=== PATIENT | female | born 2005 | race Caucasian/White ===

== ENCOUNTER 2025-08-28 07:02 | Outpatient (REF) | payer BC, SELFPAY ==
--- NOTE | ~2025-08-28 | US_ITS ---
EXAMINATION: US PELVIS TRANSABDOMINAL AND TRANSVAGINAL HISTORY: IRREGULAR BLEEDING COMPARISON: There are no prior studies available for comparison. TECHNIQUE: Transabdominal and endovaginal real-time 2D rueda-scale ultrasound was performed. FINDINGS: Uterus: The uterus is normal in size, measuring 7.4 x 3.1 x 3.9 cm. Myometrium has a normal echotexture. No fibroids are identified. Endometrium: The endometrial stripe measures 2 mm in thickness. Right ovary: The right ovary measures 2.1 x 1.2 x 2.3 cm. The right ovary is normal in size and echotexture. Left ovary: The left ovary measures 2.0 x 1.5 x 1.1 cm. The left ovary is normal in size and echotexture. Pelvic fluid: none. US/US pelvic and transvaginal IMPRESSION: Unremarkable pelvic ultrasound. Electronically signed by: Alec Pedroza MD 08/28/2025 12:50 PM EDT
--- OUTSIDE RECORDS SUMMARY | 2025-08-28 07:06 | XMS_ITS | Clinical Summary ---
Author Organization [facility] [employer] [facility] linic Address [address] [place] [address] Care Team Providers Care Netezza Architect Name Role Phone Pcp, No Primary Care Provider [phone] Social History Tobacco Use Types Packs/Day Years Used Date Smoking Tobacco: Never Assessed Comments Unknown Sex and Gender Information Value Date Recorded Sex Assigned at Not on file Legal Sex Female 4:24 PM EDT Gender Identity Not on file Sexual Orientation Not on file Plan of Treatment Health Maintenance Due Date Last Done Comments Depression: Screening Annual ly using PHQ-2/9 in Adults 18 yrs or above (or HM Modifier)([facility]) 2022 Hepatitis C Virus Infection in Adolescents and Adults: Screening (or Modifier) ([facility]) 2022 SDOH Screening Reminder: Syeda srivastava for all adults ([facility]) 2022 Tobacco Smoking Cessation: i n Adults excluding Women: Behavioral and Pharmacotherapy Interventions ([facility]) 2022 DTaP/Tdap/Td Vaccines ([facility]) (1 - Tdap) 2023 Flu Vaccination: Yearly for ages 18mos through 64 years (or Modifier)([facility]) 06/15/2025 COVID-19 Vaccine Screening: Initial Series and Booster Status ([facility]) ( - 2023- season) 2025 Zoster/Shingles Vaccine Seri es Screening: Adults aged 18+ yrs (or HM Modifiers)([facility]) (1 of 2) 2054 Pneumococcal Vaccination Scr eening: Pts 0-19 & 19-49 yrs of age ([facility]) Aged Out No longer eligible based on patient's age to complete this topic Medical Devices Not on file Care Teams Netezza Architect Relationship Specialty Start Date End Date Pcp, No PCP - General Family Medicine 02/08/21
--- OUTSIDE RECORDS SUMMARY | 2025-08-28 07:06 | XMS_ITS | Clinical Summary ---
Author Organization [facility] Address [address] [place] [address] [phone] [place] [address] Care Team Providers Care Education Research Analyst Name Role Phone Poc, Non Atrius Pcp Or Primary Care Provider Mavis vailable Medications norgestimate-eth inyl estradioL (ORTHO-CYCLEN) 0.25-35 mg-mcg tablet 1 tablet daily 04/08/2025 Active SPIRONOLACTONE ORAL Take by mouth Active Active Problems Problem Noted Date Diagnosed Date Migraine without aura and wi thout status migrainosus, not intractable 07/06/2018 Acne Medical History Medical History Date Comments Acne Family History Medical History Relation Comments Cancer - breast Maternal Grandmother Cancer - breast Paternal Grandmother No significant medical history Sister Relation Status Comments Maternal Grandmother Paternal Grandmother Sister Social History Tobacco Use Types Packs/Day Years Used Date Smoking Tobacco: Some Days Cigarettes 0.3 1.8 Started: 2023 Smokeless Tobacco: Never Tobacco Cessation:Ready to Q uit: No; Counseling Given: Yes Alcohol Use Standard Drinks/Week Comments Yes 0 (1 standard drink = 0.6 oz pur e alcohol) once a week Comments No Sex and Gender Information Value Date Recorded Sex Assigned at Female 04/03/2025 1:17 PM EDT Legal Sex Female 1:16 PM EDT Gender Identity Female 04/03/2025 1:17 PM EDT Sexual Orientation Not on file Obstetrics History Para Term AB IAB SAB Ectopic Multiple Livin g Live Births 0 0 0 0 0 0 0 0 0 0 0 Comments [employer] History: Menarche: Age [age] years old Menses: regular, q28d days, light flow - now continuous OCP's Intermenstrual bleeding: none Dysmenorrhea: none Menopause: Premenopausal Control (prior &/or current): OCP's Pap hx: None HRT: N/A [employer] Problems: Denies Sexual History: previously sexually active, non-monogamous and male [employer] CA hx: denies Breast CA hx: + BC history in maternal and paternal grandmothers Last Filed Vital Signs Vital Sign Reading Time Taken Comments Blood Pressure 118/72 04/19/2025 8:13 AM EDT Pulse - - Temperature - - Respiratory Rate - - Oxygen Saturation - - Inhaled Oxygen Concentration - - Weight 60.8 kg (134 lb 2 oz) 04/19/2025 8:13 AM EDT Height 165.1 cm (5' 5 ) 04/19/2025 8:13 AM EDT Body Mass Index 22.32 04/19/2025 8:13 AM EDT Plan of Treatment Health Maintenance Due Date Last Done Comments OFFICE VISIT 2004 DTAP/TDAP/TD VACCINE (1 - Tdap) 2011 HPV VACCINE (1 - 3-dose series) 2019 HEP B INITIAL SCREENING 2022 HEP C SCREENING 2022 HIV SCREENING 2022 RUBELLA 2022 HEPATITIS B VACCINE (1 of 3 - 19+ 3-dose series) 2023 PERIODIC HEALTH REVIEW 2023 PNEUMOCOCCAL VACCINE(S) (1 of 2 - PCV) 2023 LIPID SCREENING 2024 COVID-19 Vaccine ( season) 2025 09/21/2024, 09/09/2023, 07/31/2022, Additional history exists FLU SEASONAL (#1) 07/16/2025 09/21/2024, 09/09/2023, 10/03/2021, Additional history exists CHLAMYDIA SCREENING FEMALE 16-24 04/19/2026 04/19/2025 HAEMOPHILUS INFLUENZA VACCINE Aged Out No longer eligible based on patient's age to complete this topic HEPATITIS A VACCINE Aged Out No longe r eligible based on patient's age to complete this topic MENINGOCOCCAL VACCINE (ACWY) Aged Out No longer eligible based on patient's age to complete this topic POLIO VACCINE Aged Out No longer elig ible based on patient's age to complete this topic RSV Vaccine Infant//toddler Aged Out No longer eligible based on patient's age to complete this topic Procedures Procedure Name Priority Date/Time Associated Diagnosis Comments CHLAMYDIA / GC SWAB PCR Routine 04/19/2025 10:39 AM EDT Unprotected sexual intercourse PCB (post coital bleeding) from Last 3 Months or Most Recently Relevant to Health Maintenance Results * CHLAMYDIA / GC SWAB PCR (04/19/2025 10:39 AM EDT) CHLAMYDIA PCR Negative Negative 04/20/2025 12:33 AM EDT [facility] DEPARTMENT OF PATHOLOGY AND LAB MEDICINE Comment: Test performed using Aptima Combo2 PCR assay. NEISSERIA GONORRHOEAE PCR Negative Negative 04/20/2025 12:33 AM EDT [facility] DEPARTMENT OF PATHOLOGY AND LAB MEDICINE Comment: Test performed using Aptima Combo2 PCR assay. SOURCE Vagina 04/20/2025 12:33 AM EDT [facility] DEPARTMENT OF PATHOLOGY AND LAB MEDICINE Swab (Vagina) Non-blood collection / Unknown 04/19/2025 10:39 AM EDT 04/19/2025 10:39 AM EDT [facility] Final Result [facility] OF [facility] [address] [place] [id number] from Last 3 Months or Most Recently Relevant to Health Maintenance Insurance [employer] Care Teams Education Research Analyst Relationship Specialty Start Date End Date Poc, Non Atrius Pcp Or PCP - General 04/03/25
--- OUTSIDE RECORDS SUMMARY | 2025-08-28 07:06 | XMS_ITS | Clinical Summary ---
Author Organization [facility] Address [address] [id number] Care Team Providers Care Retail Loss Prevention Specialist Name Role Phone Unavailable Primary Care Provider Unavailabl e Social History Tobacco Use Types Packs/Day Years Used Date Smoking Tobacco: Never Assessed Comments Unknown Sex and Gender Information Value Date Recorded Sex Assigned at Not on file Legal Sex Female 12:06 PM EST Gender Identity Not on file Sexual Orientation Not on file Plan of Treatment Health Maintenance Due Date Last Done Comments Blood Pressure 2004 Depression Screening 2008 Chlamydia and Gonorrhea Screening 2019 Meningococcal B Vaccines (1 of 2 - Standard) 2020 Hepatitis C Screening 2022 DTaP,Tdap,and Td Vaccines (1 - Tdap) 2023 COVID-19 Vaccine ( - 2023-2 5 season) 2025 Influenza Vaccine (#1) 2025 Meningococcal Vaccines Aged Out No lo nger eligible based on patient's age to complete this topic Pneumococcal Vaccine Aged Out No long er eligible based on patient's age to complete this topic
== END 2025-08-28 07:03 | disposition home or self-care (01) ==
LOC: HO.UMASIMG 07:02
PROVIDERS: Visit Provider Family Medicine
DX: N92.6 Irregular menstruation, unspecified (principal)
CPT/HCPCS: 76830; 76856

== ENCOUNTER → 2025-08-28 11:39 | Outpatient (BNV) | payer BC, SELFPAY | PROVIDERS: Visit Provider Radiology Diagnostic Radiology | DX: N92.6 Irregular menstruation, unspecified (principal) | CPT/HCPCS: 76830; 76856 ==